=== PATIENT | female | born 2000 | race Caucasian/White ===

== ENCOUNTER 2023-12-20 12:53 | Emergency (ER) | payer OTHER ==
[~2023-12-20] VITALS: Ht 152.4 cm; Wt 107.5 kg
[2023-12-20 12:54] VITALS: BP 144/97; TEMP 98.1; O2SAT 98
[2023-12-20] MEDS ORDERED: MONT-5 PO (13:03)
[2023-12-20 15:24] LABS: BASO % 0.3 % (0.0-1.0); EOS # 0.4 10^3/uL (0.0-0.5); EOS % 4.4 % (0.0-3.0); HEMOGLOBIN 12.2 g/dl (12.0-15.5); LYMPH # 1.4 10^3/uL (1.5-5.0); LYMPH % 15.7 % (24.0-44.0); MEAN CORPUSCULAR HEMOGLOBIN 25.6 pg (27.0-33.0); MEAN CORPUSCULAR HGB CONC 32.1 g/dl (32.0-36.5); MEAN CORPUSCULAR VOLUME 79.7 fl (80.0-96.0); MONO # 0.4 10^3/uL (0.0-0.8); MONO % 4.1 % (2.0-8.0); NEUTROPHILS # 6.5 10^3/uL (1.5-8.5); NEUTROPHILS % 75.3 % (36.0-66.0); PLATELET COUNT, AUTOMATED 260 10^3/uL (150-450); RED BLOOD COUNT 4.77 10^6/uL (4.00-5.40); WHITE BLOOD COUNT 8.6 10^3/uL (4.0-10.0)
[2023-12-20] MEDS: IPRATROPIUM 0.5MG/ALBUTEROL 2.5MG INH SOL UD 3ML (DUONEB) NEB ONE (15:49)
[2023-12-20 15:57] LABS: HCG, SERUM QUALITATIVE NEGATIVE (NEGATIVE)
[2023-12-21] MEDS ORDERED: ALBU2.5V10 NEB (01:40)
[2023-12-21] MEDS ORDERED: NEBU1EAC78 MC (01:40)
[2023-12-21] MEDS ORDERED: MEDR4PAK PO (01:41)
== END 2023-12-20 16:20 | disposition left against medical advice (07) ==
LOC: M ED 12:53
DX: Z53.21 Procedure and treatment not carried out due to patient leaving prior to being seen by health care provider (principal)

== ENCOUNTER 2023-12-20 20:09 | Emergency (ER) | payer OTHER ==
[~2023-12-20] VITALS: Ht 152.4 cm; Wt 107.9 kg
[~2023-12-20 20:09] MED LIST: MONT-5 PO
[2023-12-21 00:44] VITALS: TEMP 100.1
[2023-12-21] MEDS: ACETAMINOPHEN TAB 650MG DOSE (2X325MG) PO ONE (00:55)
[2023-12-21] MEDS: predniSONE 20 MG TAB PO ONE (00:55)
[2023-12-21] MEDS: IPRATROPIUM 0.5MG/ALBUTEROL 2.5MG INH SOL UD 3ML (DUONEB) NEB ONE (01:11)
[2023-12-21] MEDS ORDERED: NEBU1EAC78 MC (01:40)
[2023-12-21] MEDS ORDERED: ALBU2.5V10 NEB (01:40)
[2023-12-21] MEDS ORDERED: MEDR4PAK PO (01:41)
[2023-12-21 02:11] VITALS: BP 135/79; O2SAT 98
== END 2023-12-21 02:17 | disposition home or self-care (01) ==
LOC: M ED 20:09
DX: J45.901 Unspecified asthma with (acute) exacerbation (principal); J06.9 Acute upper respiratory infection, unspecified; Z91.010 Allergy to peanuts; Z91.013 Allergy to seafood; Z79.51 Long term (current) use of inhaled steroids; Z79.899 Other long term (current) drug therapy
CPT/HCPCS: 71046; 94640; 99284; J7512